=== PATIENT | female | born 1975 | race Caucasian/White ===

== ENCOUNTER 2017-04-22 18:22 | Emergency (ER) | payer MEDICAID ==
[2017-04-22] MEDS: ACETAMINOPHEN 500 MG TAB PO (19:33)
[2017-04-22] MEDS: IBUPROFEN 200 MG TAB PO (19:33)
== END 2017-04-22 21:43 | disposition home or self-care (01) ==
LOC: FTE 18:22
DX: J02.9 Acute pharyngitis, unspecified (principal); F17.210 Nicotine dependence, cigarettes, uncomplicated
CPT/HCPCS: 87400; 87880; 99283